=== PATIENT | female | born 1960 | race Caucasian/White ===

== ENCOUNTER 2022-03-19 15:57 | Emergency (ER) | payer MEDICARE ==
[~2022-03-19 15:57] MED LIST: BENTYL 20MG TAB20 MG PO; CLARITIN10 MG PO; IBUPROFEN600 MG PO; PROTONIX40 MG PO; TRAZODONE HCL100 MG PO; VALIUM 5 MG TAB5 MG PO; ZOFRAN4 MG PO
[2022-03-19 17:19] LABS: HEMOGLOBIN 13.6 gm/dl (12.3-15.3); RED BLOOD COUNT 3.94 M/UL (4.00-5.10)
[2022-03-19 17:39] LABS: BUN/CREATININE RATIO 20 (0-10)
[2022-03-19] MEDS ORDERED: ONDANSETRON ODT4 MG SL (22:13)
[2022-03-19] MEDS ORDERED: FLORASTOR250 MG PO (22:13)
== END 2022-03-19 22:21 | disposition home or self-care (01) ==
LOC: ER1 15:57
PROVIDERS: Physician Assistant
DX: K92.1 Melena (principal); R19.7 Diarrhea, unspecified; F17.200 Nicotine dependence, unspecified, uncomplicated; Z88.8 Allergy status to other drugs, medicaments and biological substances
CPT/HCPCS: 80053; 81001; 83690; 85025; 99284; Q9967